=== PATIENT | male | born 1960 | race Caucasian/White ===

== ENCOUNTER 2017-09-22 10:17 | Emergency (ER) | payer MEDICAID ==
[2017-09-22 10:59] VITALS: BMI 23.8
[2017-09-22] MEDS ORDERED: Sodium Chloride 0.9% 1,000 ML IV ONE (12:19)
[2017-09-22 12:36] LABS: BASO % 0.7 % (0.0-2.0); EOS # 0.1 K/uL (0.0-0.7); EOS % 2.1 % (0.0-4.0); HEMOGLOBIN 17.4 g/dL (12.0-18.0); LYMPH # 1.5 K/uL (1.0-4.3); LYMPH % 25.3 % (20.0-40.0); MEAN CORPUSCULAR HEMOGLOBIN 31.5 pg (27.0-31.0); MEAN PLATELET VOLUME 8.9 fL (7.2-11.7); MONO # 0.4 K/uL (0.0-0.8); MONO % 7.4 % (0.0-10.0); NEUT # 3.8 K/uL (1.8-7.0); NEUT % 64.5 % (50.0-75.0); NRBC % 0.1 % (0.0-2.0); RBC 5.51 Mil/uL (4.40-5.90); RED CELL DISTRIBUTION WIDTH 13.5 % (11.5-14.5); WHITE BLOOD COUNT 5.8 K/uL (4.8-10.8)
[2017-09-22 12:46] LABS: URINE BILIRUBIN NEGATIVE (NEGATIVE); URINE BLOOD NEGATIVE (NEGATIVE); URINE CLARITY Clear (Clear); URINE COLOR Yellow (YELLOW); URINE GLUCOSE (UA) NORMAL (Normal); URINE LEUKOCYTE ESTERASE NEG Leu/uL (Negative); URINE PROTEIN NEGATIVE (NEGATIVE); URINE UROBILINOGEN NORMAL mg/dL (0.2-1.0)
[2017-09-22 12:49] LABS: ALB/GLOB RATIO 1.2 (1.0-2.1); ALBUMIN 4.6 g/dL (3.5-5.0); ALT/SGPT 32 U/L (21-72); AST/SGOT 28 U/L (17-59); BLOOD UREA NITROGEN 20 mg/dL (9-20); CALCIUM 9.5 mg/dl (8.6-10.4); GFR AFRICAN-AMERICAN > 60; GFR NON-AFRICAN AMERICAN > 60
[2017-09-22 13:04] LABS: B-TYPE NATRIURETIC PEPTIDE 27.5 pg/mL (0-900)
[2017-09-22 13:08] LABS: T4 7.12 ug/dL (5.5-11.0)
[2017-09-22 13:09] LABS: D DIMER < 200 ng/mlDDU (0-243); INR 1.2; PARTIAL THROMBOPLASTIN TIME 35 SECONDS (21-34); PROTHROMBIN TIME 12.7 SECONDS (9.7-12.2)
[2017-09-22 13:11] LABS: BARBITURATES, UR NEGATIVE (NEGATIVE); BENZODIAZEPINES, UR NEGATIVE (NEGATIVE); OPIATES, UR NEGATIVE (NEGATIVE); PHENCYCLIDINE, UR NEGATIVE (NEGATIVE)
--- NOTE | 2017-09-22 13:13 | RAD ---
Chest x-ray two views History: Chest pain. Comparison: None available. Findings: Biapical pleural thickening with upper lobe granulomatous changes. Mild venous congestion. Bibasilar breast and nipple shadows. Tortuous ectatic aorta. Degenerative changes in the spine. Impression: Biapical pleural thickening with upper lobe granulomatous changes. Mild venous congestion. Bibasilar breast and nipple shadows. Tortuous ectatic aorta.
[2017-09-22 13:22] LABS: T3 1.88 nmol/L (1.49-2.60)
[2017-09-22] MEDS ORDERED: Albuterol-Ipratrop 3 mg / 0.5 (3 ml) UD IH STA (13:34)
[2017-09-22] MEDS ORDERED: MethylPREDNISolone 40 mg Vial IVP STA (13:34)
--- NOTE | 2017-09-22 13:40 | C.PDOC ---
History Of Present Illness 57 y/o male presents to ED Time Seen by Provider: 09/22/17 12:14 Chief Complaint (Nursing): Palpitations Past Medical History Vital Signs: Last Vital Signs Temp 98.4 F 09/22/17 10:58 Pulse 92 H 09/22/17 10:58 Resp 18 09/22/17 10:58 BP 137/80 09/22/17 10:58 Pulse Ox 99 09/22/17 13:40 - Medical History PMH: Anxiety, Back Problems (herniated discs L1 and L2), Gastritis, HTN Family History: States: Unknown Family Hx - Social History Hx Tobacco Use: No Hx Alcohol Use: No Hx Substance Use: No - Immunization History Hx Tetanus Toxoid Vaccination: No Hx Influenza Vaccination: No Hx Pneumococcal Vaccination: No ED Course And Treatment - Laboratory Results Result Diagrams: 09/22/17 12:28 09/22/17 12:28 O2 Sat by Pulse Oximetry: 99 Disposition - Disposition Forms: [facility] (Maori)
--- NOTE | 2017-09-22 13:41 | C.PDOC ---
History Of Present Illness 57 y/o male w/PMhx of HTN, seasonal allergy presents to ED with complaints of " intermittent palpitations since last night". Pt describes as fast hear beating, positional, self-limited and intermittent since last night. Patient reports similar episode 1 year ago, when was seen here and had full cardiac work up by PMD that was negative. Pt also reports, (+) nasal congestion, runny nose, ' seasonal allergy" for past week. Otherwise, Patient denies fever, chills, headache, dizziness, vertigo, visual changes, focal deficits, neck pain, CP, drooling, SOB, dyspnea, wheezing, abd. pain, nausea, vomiting, back pain, or any other complaints at this time. At the time of evaluation, pt admits is asymptomatic. Time Seen by Provider: 09/22/17 12:14 Chief Complaint (Nursing): Palpitations Past Medical History Reviewed: Historical Data, Nursing Documentation, Vital Signs Vital Signs: Last Vital Signs Temp 99.0 F 09/22/17 15:47 Pulse 99 H 09/22/17 15:47 Resp 17 09/22/17 15:47 BP 125/73 09/22/17 15:47 Pulse Ox 97 09/22/17 15:47 - Medical History PMH: Anxiety, Back Problems (herniated discs L1 and L2), Gastritis, HTN Family History: States: Unknown Family Hx - Social History Hx Tobacco Use: No Hx Alcohol Use: No Hx Substance Use: No - Immunization History Hx Tetanus Toxoid Vaccination: No Hx Influenza Vaccination: No Hx Pneumococcal Vaccination: No Review Of Systems Constitutional: Negative for: Fever, Chills Cardiovascular: Positive for: Palpitations. Negative for: Chest Pain Respiratory: Positive for: Shortness of Breath Gastrointestinal: Negative for: Nausea, Vomiting Skin: Negative for: Rash Physical Exam - Physical Exam Appears: Well, Non-toxic, No Acute Distress Skin: Normal Color, Warm, Dry, No Rash Head: Normacephalic Eye(s): bilateral: PERRL Ear(s): Bilateral: Normal Nose: No Flaring, Discharge (B/l nasal congestion with scant clear rhinorrhea) Oral Mucosa: Moist, No Drooling Tongue: Normal Appearing Lips: Normal Appearing Throat: No Erythema, No Drooling Neck: Trachea Midline, Supple Cardiovascular: Rhythm Regular, No Friction Rub, No Murmur, No JVD, Other ((-) carotid bruits B/L) Respiratory: No Decreased Breath Sounds, No Accessory Muscle Use, No Stridor, Wheezing (scattered expiratory wheezing Right base) Gastrointestinal/Abdominal: Soft, No Tenderness, No Distention, No Guarding, No Rebound Back: No CVA Tenderness Extremity: Normal ROM, No Pedal Edema, No Capillary Refill, No Deformity, No Swelling Neurological/Psych: Oriented x3, Normal Speech ED Course And Treatment - Laboratory Results Result Diagrams: 09/22/17 12:28 09/22/17 12:28 Lab Interpretation: No Acute Changes ECG: Interpreted By Me, Viewed By Me ECG Rhythm: Sinus Rhythm ECG Interpretation: Normal Interpretation Of ECG: SR@93/min, NAD, no acute t wave or ST-T changes. Similar to previous studies. O2 Sat by Pulse Oximetry: 99 Pulse Ox Interpretation: Normal - Radiology CXR: Interpreted by Me, Viewed By Me, Read By Radiologist - Other Rad CXR X-Ray: Read By Radiologist Interpretation: Impression: Biapical pleural thickening with upper lobe granulomatous changes. Mild venous congestion. Bibasilar breast and nipple shadows. Tortuous ectatic aorta. Progress Note: Pt OBS in ED for 4 hours , card. monitor- SR, no ectopy noted, and remained asymptomatic. On re-evaluation, pt is afebrile, hemodynamiclay stable. Asymptomatic. Non-toxic, tolerate Po well in ED. PulsEOx 97% RA. Neck: Supple, (-) JVD, (-) carotid bruits B/L. ENT: no acute findings. Lungs: CTA B/L , BS equal B/L. CVS: (+)S1S2, reg. Abd: benign, (-) guarding, (-) rebound. back : (-) CVA tenderness. neurologicaly intact. CXR and EKG review, no acute findings, appeas similar to previous studies. Blood work review and appears normal. UA results review - normal. Pt has clinical findings c/w intermittent palpitation, seasonal allergy with exp wheezing r/o asthma . Pt advised. ref. to F/u with PMD, cardiology in 2-3 days for re-eavl. return to Ed if any worsening or new changes. Disposition Counseled Patient/Family Regarding: Studies Performed, Diagnosis, Need For Followup, Rx Given - Disposition Referrals: Kee Vidal DO [Staff Provider] - Symone Mauricio MD [Staff Provider] - Disposition: HOME/ ROUTINE Disposition Time: 13:45 Condition: STABLE Additional Instructions: Encourage fluids take medication as prescribed Follow up with PMD, cardiology in 2-3 days for re-evaluation. Return to ED if any worsening or new changes. Prescriptions: Albuterol HFA [Ventolin HFA 90 mcg/actuation (8 g)] 1 puff IH Q6 #1 inhaler Fluticasone Propionate [Flonase] 1 spr NS BID #1 bottle Loratadine [Claritin] 10 mg PO DAILY #20 tab Prednisone [Deltasone] 20 mg PO DAILY #3 tablet Instructions: Asthma in Adults, Palpitations (DC) Forms: [facility] (Palestinian) Print Language: AMERICAN - Clinical Impression Clinical Impression: Palpitation, Seasonal allergic rhinitis, Wheezing - PA / [employer]TER WR[employer]PER / Resident Statement / has reviewed & agrees with the documentation as recorded. - Scribe Statement The provider has reviewed the documentation as recorded by the Shannaibedison Lozano All medical record entries made by the Shannaibedison were at my direction and personally dictated by me. I have reviewed the chart and agree that the record accurately reflects my personal performance of the history, physical exam, medical decision making, and the department course for this patient. I have also personally directed, reviewed, and agree with the discharge instructions and disposition.
[2017-09-22] MEDS ORDERED: MethylPREDNISolone 40 mg Vial ONE (14:20)
[2017-09-22] MEDS ORDERED: Albuterol-Ipratrop 3 mg / 0.5 (3 ml) UD ONE (14:21)
[2017-09-22 14:28] VITALS: RESP 17
[2017-09-22 15:49] VITALS: BP 125/73; PULSE 99; TEMP 99
[2017-09-22 17:59] VITALS: O2SAT 99
--- NOTE | 2017-09-23 13:10 | CARD ---
APPROVED REPORT EKG Measurement Heart [id number] <Conclusion> Normal sinus rhythm Normal ECG
== END 2017-09-22 16:12 | disposition home or self-care (01) ==
LOC: C.ER 10:17
DX: R00.2 Palpitations (principal); J30.2 Other seasonal allergic rhinitis; R06.2 Wheezing; I10 Essential (primary) hypertension
CPT/HCPCS: 71046; 80053; 80324; 80345; 80346; 80349; 80353; 80358; 80361; 81001; 83880; 83992; 84436; 84443; 84480; 84484; 85025; 85378; 85610; 85730; 93005; 96361; 96374; 99285; J2920; J7040